=== PATIENT | male | born 1975 | race Caucasian/White ===

== ENCOUNTER 2017-01-31 08:29 | Outpatient (RCR) | payer OTHER ==
--- OUTSIDE RECORDS SUMMARY | 2016-12-27 09:14 | XMS REPORT | Continuity of Care Document ---
Author Author [facility] Organization [facility] Address Unknown Phone Unavailable Allergies Active Description Code Type Severity Reaction Onset Reported/Identified Relationship to Patient Clinical Status Yes No Known Drug Allergies [id number] Drug Allergy Unknown N/ A 02/09/2011 Medications Problems Date Dx Coded Attending Type Code Diagnosis Diagnosed By 06/26/2008 RIMMA BECERRA APRN 780.93 Memory Loss 06/26/2008 780.93 Memory Loss 06/26/2008 AMARI EDMONDS MD 780.93 Memory Loss 06/09/2009 RIMMA BECERRA APRN S 465.9 Upper Respiratory Infection 06/09/2009 465.9 Upper Respiratory Infection 06/09/2009 AMARI EDMONDS MD 465.9 Upper Respiratory Infection 06/04/2010 DEVIN BECERRA APRNA S 564.1 IRRITABLE BOWEL SYNDROME 06/04/2010 564.1 IRRITABLE BOWEL SYNDROME 06/04/2010 GREY MEI, AMARI Jimenez 564.1 IRRITABLE BOWEL SYNDROME 12/12/2010 DEVIN BECERRA APRNA S 401.1 HYPERTENSION, BENIGN ESSENTIAL 12/12/2010 DEVIN BECERRA APRNA S 535.50 Gastritis Unspec 12/12/2010 RIMMA BECERRA APRN S 789.03 Abdominal Pain Right Lower Quadrant 12/12/2010 401.1 HYPERTENSION, BENIGN ESSENTIAL 12/12/2010 535.50 Gastritis Unspec 12/12/2010 789.03 Abdominal Pain Right Lower Quadrant 12/12/2010 AMARI EDMONDS MD 401.1 HYPERTENSION, BENIGN ESSENTIAL 12/12/2010 AMARI EDMONDS MD 535.50 Gastritis Unspec 12/12/2010 AMARI EDMONDS MD 789.03 Abdominal Pain Right Lower Quadrant 12/19/2010 DEVIN BECERRA APRNA S 530.81 Gerd 12/19/2010 RIMMA BECERRA APRN S 564.00 Constipation 12/19/2010 RIMMA BECERRA APRN S 787.01 Nausea With Vomiting 12/19/2010 DEVIN BECERRA APRNA S 789.01 Abdominal Pain Right Upper Quadrant 12/19/2010 PAT BECERRA APRNNDA S 789.09 Abdominal Pain Other Specified Site 12/19/2010 530.81 Gerd 12/19/2010 564.00 Constipation 12/19/2010 787.01 Nausea With Vomiting 12/19/2010 789.01 Abdominal Pain Right Upper Quadrant 12/19/2010 789.09 Abdominal Pain Other Specified Site 12/19/2010 GREY MEI, AMARI Jimenez 530.81 Gerd 12/19/2010 GREY MEI, AMARI Jimenez 564.00 Constipation 12/19/2010 AMARI EDMONDS MD 787.01 Nausea With Vomiting 12/19/2010 GREY MEI, AMARI Jimenez 789.01 Abdominal Pain Right Upper Quadrant 12/19/2010 AMARI EDMONDS MD 789.09 Abdominal Pain Other Specified Site 02/09/2011 Ot 575.11 CHRONIC CHOLECYSTITIS 02/27/2011 RIMMA BECERRA APRN S 575.10 Cholecystitis Unspecified 02/27/2011 RIMMA BECERRA APRN S V45.89 Other Postsurgical Status 02/27/2011 575.10 Cholecystitis Unspecified 02/27/2011 V45.89 Other Postsurgical Status 02/27/2011 GREY MEI, AMARI M 575.10 Cholecystitis Unspecified 02/27/2011 AMARI EDMONDS MD V45.89 Other Postsurgical Status 07/18/2011 RIMMA BECERRA APRN S 272.4 HYPERLIPIDEMIA 07/18/2011 272.4 HYPERLIPIDEMIA 07/18/2011 AMARI EDMONDS MD 272.4 HYPERLIPIDEMIA 07/28/2011 Ot 300.00 ANXIETY STATE NOS 07/28/2011 Ot 784.0 HEADACHE 07/31/2011 RIMMA BECERRA APRN S 300.00 ANXIETY STATE UNSPECIFIED 07/31/2011 300.00 ANXIETY STATE UNSPECIFIED 07/31/2011 AMARI EDMONDS MD 300.00 ANXIETY STATE UNSPECIFIED 08/22/2012 RIMMA BECERRA APRN S 578.1 HEMATOCHEZIA 08/22/2012 [employer]NA[employer] REPRESENTATIVE, RIMMA S 724.2 BACK PAIN, LOWER 08/22/2012 578.1 HEMATOCHEZIA 08/22/2012 724.2 BACK PAIN, LOWER 08/22/2012 GREY MEI, AMARI Jimenez 578.1 HEMATOCHEZIA 08/22/2012 GREY MEI, AMARI Jimenez 724.2 BACK PAIN, LOWER 02/25/2013 569.42 ANAL OR RECTAL PAIN 02/25/2013 GREY MEI, AMARI Jimenez 569.42 ANAL OR RECTAL PAIN 03/03/2013 GREY MEI, AMARI Jimenez Ot 565.0 ANAL FISSURE 07/28/2016 GREY MEI, AMARI Jimenez Ot V72.84 EXAM PRE-OPERATIVE NOS 07/28/2016 MARTIN NOLASCO, MARY L Ot T15.02XA FOREIGN BODY IN [place], LEFT EYE, INITIA 07/28/2016 ELVER MARCUSTCHEN L Ot T15.92XA FOREIGN BODY ON EXTERNAL EYE, PART UNSP, 07/28/2016 JAQUELINE MARCUSEN L Ot Y92.[address] OR NOT APPLICABLE 07/31/2016 JAQUELINE MARCUSEN L Ot T15.02XA FOREIGN BODY IN [place], LEFT EYE, INITIA 07/31/2016 MARTIN NOLASCO MARY L Ot T15.92XA FOREIGN BODY ON EXTERNAL EYE, PART UNSP, 07/31/2016 ELVER MARCUSTCHEN L Ot Y92.[address] OR NOT APPLICABLE 08/18/2016 LUCIANO MERCEDES DO Ot M48.07 SPINAL STENOSIS, LUMBOSACRAL REGION 10/04/2016 Ot 787.02 NAUSEA ALONE 10/04/2016 Ot 789.01 ABDOMINAL PAIN, RIGHT UPPER QUADRANT 10/04/2016 GREY MEI, AMARI Jimenez Ot V72.84 EXAM PRE-OPERATIVE NOS 10/04/2016 Ot 575.8 DIS OF GALLBLADDER NEC 10/04/2016 Ot V72.63 PRE-PROCEDURAL LABORATORY EXAMINATION 10/04/2016 Ot V72.81 [id number] CARDIOVASCULAR 10/04/2016 Ot V74.8 SCREEN-BACTERIAL DIS NEC 10/04/2016 AMARI EDMONDS MD Ot V72.84 EXAM PRE-OPERATIVE NOS 10/04/2016 LUCIANO MERCEDES DO Ot M48.07 SPINAL STENOSIS, LUMBOSACRAL REGION 10/04/2016 GREY MEIAMARI Ot V72.84 EXAM PRE-OPERATIVE NOS 10/04/2016 LUCIANO MERCEDES DO Ot M48.07 SPINAL STENOSIS, LUMBOSACRAL REGION 10/05/2016 Ot 300.00 ANXIETY STATE NOS 10/05/2016 Ot 784.0 HEADACHE 10/05/2016 MARY MARCUS Ot T15.02XA FOREIGN BODY IN [place], LEFT EYE, INITIA 10/05/2016 MARY MARCUS Ot T15.92XA FOREIGN BODY ON EXTERNAL EYE, PART UNSP, 10/05/2016 MARY MARCUS Ot Y92.[address] OR NOT APPLICABLE 10/05/2016 LUCIANO MERCEDES DO Ot M48.07 SPINAL STENOSIS, LUMBOSACRAL REGION 12/18/2016 LUCIANO MERCEDES DO Ot M48.07 SPINAL STENOSIS, LUMBOSACRAL REGION Procedures Code [place] [address] XRAY ABDOMEN, 1 VIEW (KUB) 02/25/2013 Amari Grimaldo 02/26/2013 Results Encounters ACCT No. Visit Date/Time Discharge Status Pt. Type Provider Facility Loc./Unit Complaint [id number] 07/28/2016 18:43:00 2015 19:45:00 DIS Emergency MARY MARCUS [facility] ER METAL IN EYE [id number] 03/03/2013 10:09:00 2012 13:00:00 DIS Outpatient AMARI EDMONDS MD [facility] SDC RECTAL PAIN [id number] 02/27/2013 07:50:00 2012 23:59:59 CLS Outpatient AMARI EDMONDS MD [facility] PREOP RECTAL PAIN [id number] 12/27/2016 13:22:00 PEN Preadmit LUCIANO MERCEDES DO [facility] REHAB B L4-5 HEMILAMINECTOMY [id number] 08/17/2016 14:57:00 ACT Outpatient LUCIANO MERCEDES DO [facility] RAD BACK PAIN GOES DOWN TO RT LEG [id number] 07/28/2011 12:42:00 Document Registration [id number] 02/09/2011 05:36:00 Document Registration [id number] 02/02/2011 09:00:00 Document Registration [id number] 12/23/2010 06:50:00 Document Registration
[~2017-01-31 08:29] MED LIST: BSP10T PO; BUTA1TAB46 PO; DICY10CA26 PO; HYDR-3583 PO; LISI20TA PO; LOVA20TA2 PO; OMEG1CAP51 PO
== END 2017-01-31 09:35 | disposition home or self-care (01) ==
PROVIDERS: ATTEND Family Medicine
DX: M54.31 Sciatica, right side (principal); M54.32 Sciatica, left side; Z98.890 Other specified postprocedural states

== ENCOUNTER → 2020-10-27 | Outpatient (CLI) | payer OTHER | LOC: LABNPT 07:21 | PROVIDERS: ATTEND Family Medicine | DX: Z20.822 Contact with and (suspected) exposure to COVID-19 (principal) | CPT/HCPCS: 87635 ==

== ENCOUNTER → 2021-01-06 | Outpatient (CLI) | payer OTHER ==
[2021-01-06 08:02] LABS: BASOPHILS # (AUTO) 0.1 10^3/uL (0.0-0.1); BASOPHILS % (AUTO) 1 % (0-10); EOSINOPHILS # (AUTO) 0.2 10^3/uL (0.0-0.3); EOSINOPHILS % (AUTO) 2 % (0-10); HEMATOCRIT 48 % (40-54); HEMOGLOBIN 15.9 g/dL (13.3-17.7); LYMPHOCYTES # (AUTO) 2.7 10^3/uL (1.0-4.0); LYMPHOCYTES % (AUTO) 27 % (12-44); MEAN CORPUSCULAR HEMOGLOBIN 31 pg (25-34); MEAN CORPUSCULAR HGB CONC 33 g/dL (32-36); MEAN CORPUSCULAR VOLUME 92 fL (80-99); MEAN PLATELET VOLUME 10.3 fL (9.0-12.2); MONOCYTES # (AUTO) 0.6 10^3/uL (0.0-1.0); MONOCYTES % (AUTO) 6 % (0-12); NEUTROPHILS # (AUTO) 6.4 10^3/uL (1.8-7.8); NEUTROPHILS % (AUTO) 63 % (42-75); PLATELET COUNT 226 10^3/uL (130-400); WHITE BLOOD COUNT 10.1 10^3/uL (4.3-11.0)
[2021-01-06 08:24] LABS: ALANINE AMINOTRANSFERASE 43 U/L (0-55); ALBUMIN 4.4 GM/DL (3.2-4.5); ALKALINE PHOSPHATASE 61 U/L (40-136); BILIRUBIN,TOTAL 0.4 MG/DL (0.1-1.0); BUN/CREATININE RATIO 11; CARBON DIOXIDE 24 MMOL/L (21-32); CHLORIDE 105 MMOL/L (98-107); CHOLESTEROL 246 MG/DL (< 200); CREATININE SERUM 0.87 MG/DL (0.60-1.30); GFR ESTIMATED > 60; GLUCOSE 101 MG/DL (70-105); HDL CHOLESTEROL 35 MG/DL (40-60); SODIUM 139 MMOL/L (135-145); TOTAL PROTEIN 6.9 GM/DL (6.4-8.2); TRIGLYCERIDES 257 MG/DL (<150); VLDL CHOLESTEROL 51 MG/DL (5-40)
== END ==
LOC: LAB 07:46
PROVIDERS: ATTEND Family Medicine
DX: E78.5 Hyperlipidemia, unspecified (principal); R42 Dizziness and giddiness
CPT/HCPCS: 36415; 80053; 80061; 84443; 85025

== ENCOUNTER → 2021-02-02 | Outpatient (CLI) | payer BC, OTHER ==
[2021-02-02 09:03] LABS: CHOLESTEROL 218 MG/DL (< 200); HDL CHOLESTEROL 41 MG/DL (40-60); TRIGLYCERIDES 247 MG/DL (<150); VLDL CHOLESTEROL 49 MG/DL (5-40)
== END ==
LOC: LAB 08:33
PROVIDERS: ATTEND Family Medicine
DX: E78.5 Hyperlipidemia, unspecified (principal)
CPT/HCPCS: 36415; 80061

== ENCOUNTER 2021-02-21 13:04 | Outpatient (CLI) | payer BC, OTHER | END 2021-02-21 13:45 | disposition home or self-care (01) | LOC: SLEEP 13:04 | PROVIDERS: ATTEND Nurse Practitioner | DX: G47.33 Obstructive sleep apnea (adult) (pediatric) (principal) | CPT/HCPCS: G0399 ==

== ENCOUNTER → 2021-03-03 | Outpatient (CLI) | payer BC ==
[2021-03-03 10:57] LABS: CHOLESTEROL 221 MG/DL (< 200); HDL CHOLESTEROL 39 MG/DL (40-60); TRIGLYCERIDES 277 MG/DL (<150); VLDL CHOLESTEROL 55 MG/DL (5-40)
== END ==
LOC: LAB 09:56
PROVIDERS: ATTEND Family Medicine
DX: E78.5 Hyperlipidemia, unspecified (principal)
CPT/HCPCS: 36415; 80061

== ENCOUNTER → 2021-03-25 | Outpatient (CLI) | payer BC | LOC: LABNPT 06:45 | PROVIDERS: ATTEND Family Medicine | DX: M79.10 Myalgia, unspecified site (principal); R50.9 Fever, unspecified; R53.1 Weakness; Z20.822 Contact with and (suspected) exposure to COVID-19 | CPT/HCPCS: 87636 ==

== ENCOUNTER → 2021-07-15 | Outpatient (CLI) | payer BC ==
[2021-07-15 08:26] LABS: BASOPHILS # (AUTO) 0.1 10^3/uL (0.0-0.1); BASOPHILS % (AUTO) 1 % (0-10); EOSINOPHILS # (AUTO) 0.2 10^3/uL (0.0-0.3); EOSINOPHILS % (AUTO) 2 % (0-10); HEMATOCRIT 45 % (40-54); HEMOGLOBIN 15.7 g/dL (13.3-17.7); LYMPHOCYTES # (AUTO) 2.8 10^3/uL (1.0-4.0); LYMPHOCYTES % (AUTO) 31 % (12-44); MEAN CORPUSCULAR HEMOGLOBIN 32 pg (25-34); MEAN CORPUSCULAR HGB CONC 35 g/dL (32-36); MEAN CORPUSCULAR VOLUME 92 fL (80-99); MEAN PLATELET VOLUME 10.4 fL (9.0-12.2); MONOCYTES # (AUTO) 0.6 10^3/uL (0.0-1.0); MONOCYTES % (AUTO) 6 % (0-12); NEUTROPHILS # (AUTO) 5.3 10^3/uL (1.8-7.8); NEUTROPHILS % (AUTO) 59 % (42-75); PLATELET COUNT 223 10^3/uL (130-400); WHITE BLOOD COUNT 8.9 10^3/uL (4.3-11.0)
[2021-07-15 08:52] LABS: ERYTHROCYTE SEDIMENTATION RATE 4 MM/HR (0-15)
[2021-07-15 09:13] LABS: ALANINE AMINOTRANSFERASE 43 U/L (0-55); ALBUMIN 4.6 GM/DL (3.2-4.5); ALKALINE PHOSPHATASE 53 U/L (40-136); BILIRUBIN,TOTAL 0.7 MG/DL (0.1-1.0); BUN/CREATININE RATIO 11; CALCIUM 9.5 MG/DL (8.5-10.1); CARBON DIOXIDE 22 MMOL/L (21-32); CHLORIDE 104 MMOL/L (98-107); CREATININE SERUM 0.87 MG/DL (0.60-1.30); GFR ESTIMATED 94; GLUCOSE 126 MG/DL (70-105); POTASSIUM 3.4 MMOL/L (3.6-5.0); SODIUM 138 MMOL/L (135-145); TOTAL PROTEIN 7.2 GM/DL (6.4-8.2)
== END ==
LOC: LAB 07:57
PROVIDERS: ATTEND Family Medicine
DX: R50.9 Fever, unspecified (principal)
CPT/HCPCS: 36415; 80053; 85025; 85652; 86141; 86757

== ENCOUNTER → 2023-01-03 | Outpatient (CLI) | payer BC ==
[2023-01-03 10:40] LABS: ALBUMIN 4.5 GM/DL (3.2-4.5)
[2023-01-03 10:42] LABS: TOTAL PROTEIN 7.1 GM/DL (6.4-8.2)
[2023-01-03 10:44] LABS: BILIRUBIN,TOTAL 0.4 MG/DL (0.1-1.0)
[2023-01-03 10:46] LABS: CREATININE SERUM 0.93 MG/DL (0.60-1.30)
== END ==
LOC: LAB 10:04
PROVIDERS: ATTEND Nurse Practitioner Family
DX: E78.2 Mixed hyperlipidemia (principal)
CPT/HCPCS: 36415; 80053; 80061; 82550

== ENCOUNTER → 2023-01-31 | Outpatient (CLI) | payer BC, SELFPAY ==
--- NOTE | 2023-01-31 15:46 | Diagnostic Imaging Report ---
CT CARDIAC CALCIUM SCORE INDICATION: Hyperlipidemia COMPARISON: None available. TECHNIQUE: Limited CT of the chest was performed per the coronary calcium scoring protocol. Automatic exposure controls were utilized to keep dose as low as reasonably achievable. FINDINGS: Total coronary calcium score is 54.8 with the calcium located in the left main coronary artery. Additional calcification is identified but software is within the aortic annulus and not the coronary arteries. The combination of aortic annulus and coronary artery calcium score places the patient in the 86th percentile for sex, age and ethnicity. There is no incidental abnormality within the visualized portion of the chest that would require further workup. IMPRESSION: 1. Total coronary calcium score is 54.8. Dictated by: Dictated on workstation # [id number]
== END ==
LOC: RAD 08:27
PROVIDERS: ATTEND Nurse Practitioner Family
DX: E78.5 Hyperlipidemia, unspecified (principal)
CPT/HCPCS: 75571

== ENCOUNTER → 2023-03-22 | Outpatient (CLI) | payer BC | LOC: CARD 12:33 | PROVIDERS: ATTEND Internal Medicine Cardiovascular Disease | DX: I51.7 Cardiomegaly (principal) | CPT/HCPCS: 93306 ==

== ENCOUNTER → 2023-07-04 | Outpatient (CLI) | payer BC ==
[~2023-07-04] MED LIST changes: +CATHETER FLUSH 10 ML SYR IVP PRN; +REGADENOSON 0.4 MG/5 ML SYR IV ONE
[2023-07-04 13:24] VITALS: BP 204/117
--- NOTE | 2023-07-04 14:55 | Cardiology Stress Test Report ---
Stress Test Report Date of Procedure/Referring: Date of Procedure: Jul 04, 2023 PCP Amanda Galvan Aprn Admitting Physician Admitting Physician: Attending Physician: Madeline Perez MD Baseline Heart Rate: 60 Baseline Blood Pressure: Blood Pressure Systolic: 204 Blood Pressure Diastolic: 117 Baseline Vitals Vital Signs Date Time Temp Pulse Resp B/P (MAP) Pulse Ox O2 Delivery O2 Flow Rate FiO2 07/04/23 13:24 69 204/117 (146) 96 Baseline EKG: Baseline EKG: NSR Summary After explaining the procedure to the patient, he signed a consent and then brought to the stress nuclear laboratory. Patient received 0.4 mg Lexiscan for stress test, ECG, heart rate and blood pressure were monitored continuously. Resting and stress dose of radio tracer were injected, imaging was acquired and reviewed in short axis, horizontal long axis and vertical long axis views. TID: 1.18 SSS: 0 SDS: 0 EF: 52 Patient tolerated Lexiscan well No significant ischemia or infarction on SPECT images Normal left ventricular size, ejection fraction 52% Copy Copies To 1: [facility] MADELINE PEREZ MD Jul 04, 2023 14:55
== END ==
LOC: CARD 12:00
PROVIDERS: ATTEND Internal Medicine Cardiovascular Disease
DX: R07.9 Chest pain, unspecified (principal)
CPT/HCPCS: 78452; 93017; A9502